=== PATIENT | female | born 1960 | race Caucasian/White ===

== ENCOUNTER 2016-09-20 07:48 | Day surgery (SDC) | payer OTHER ==
[~2016-09-20] VITALS: Ht 160 cm; Wt 122.7 kg
[2016-09-20] VITALS (8 sets, daily range): BP systolic 101–152; BP diastolic 54–96; PULSE 71–89; RESP 16–20; TEMP 97.3–97.9; O2SAT 95–99
[~2016-09-20 07:48] MED LIST: CEPH250C PO; HYDR-3580 PO; LEVO50TA4 PO; OXYC-360 PO
[2016-09-20] MEDS ORDERED: TRIA37.53 PO (08:13)
[2016-09-20] MEDS ORDERED: METF500T PO (08:13)
[2016-09-20] MEDS ORDERED: LEVO137T2 PO (08:13)
[2016-09-20] MEDS ORDERED: SODIUM CHLOR 0.9% 1000 ML IV SCH (08:30)
[2016-09-20] MEDS ORDERED: LIDOCAINE 1%/EPINEPHrine 1:100,000 SOLN 20 ML VIAL ONE (08:58)
[2016-09-20] MEDS ORDERED: fentaNYL CITRATE 250 MCG/5 ML AMP ONE (09:07)
[2016-09-20] MEDS ORDERED: MIDAZOLAM HCL 5 MG/5 ML VIAL ONE (09:08)
--- NOTE | 2016-09-20 15:46 | RADRPT ---
EXAM DATE/TIME: 09/20/2016 09:34 [place] COMPARISON: No previous studies available for comparison. INDICATIONS : Abnormal liver functions. SEDATION TIME: 30 minutes BIOPSY SITE: liver MEDICATION(S): 1.) 3 mg midazolam (Versed) IV 2.) 150 mcg fentanyl (Sublimaze) IV DEVICE(S): 1.) 18 gauge BioPince needle MEDICAL HISTORY : Diverticullitis. Hypothyroidism. Renal disease. SURGICAL HISTORY : section. Appendectomy. Hysterectomy. Colon resection. ENCOUNTER: Initial ACUITY: 1 day PAIN SCORE: 0/10 LOCATION: abdomen. A total of one core specimen(s) were obtained and sent to the laboratory for pathologic evaluation. 1. CT guided liver biopsy. 2. Conscious sedation with continuous EKG and oximetry monitoring. 3. EKG and oximetry remained stable throughout the procedure. Prior to the procedure informed consent was obtained. Any appropriate prior imaging studies were rev iewed. The site was prepped in a sterile fashion. Full sterile technique was used, including cap, mask, jarrod rile gloves and gown and a large sterile sheet. Hand hygiene and 2% chlorhexidine and/or betadine/al cohol prep was utilized per protocol for cutaneous antisepsis. The skin and subcutaneous tissues wer e infiltrated with local anesthetic solution. With CT guidance the previously identified target was localized. Biopsy was performed using the presc ribed needle as above. Adequate hemostasis was obtained with compression at the puncture site. Follow-up CT scan reveals no hemorrhage. The patient tolerated the procedure well and there were no complications. The patient was returned to the Radiology Outpatient Unit in stable condition. CONCLUSION: Uncomplicated CT guided liver biopsy for function. Romero Dinh MD FACR on September 20, 2016 at 15:44 Board Certified Radiologist. This report was verified electronically.
== END 2016-09-20 13:55 | disposition home or self-care (01) ==
LOC: HRAD 07:48 → EDSTATUS 08:00 → HRIP 08:14 → HRAD 13:55
DX: R94.5 Abnormal results of liver function studies (principal)
CPT/HCPCS: 47000; 77012; 88307; 88313; J2250; J3010; J7030